=== PATIENT | female | born 1990 | race Caucasian/White ===

== ENCOUNTER → 2018-10-05 | Outpatient (CLI) | payer OTHER | LOC: BHSO 10:52 | DX: F31.81 Bipolar II disorder (principal) ==

== ENCOUNTER → 2018-11-06 | Outpatient (CLI) | payer OTHER | LOC: BHSO 07:58 | DX: F31.81 Bipolar II disorder (principal) | CPT/HCPCS: G0463 ==

== ENCOUNTER → 2019-05-16 | Outpatient (CLI) | payer OTHER | LOC: BHSO 16:14 | DX: F31.81 Bipolar II disorder (principal) | CPT/HCPCS: G0463 ==

== ENCOUNTER → 2019-07-17 | Outpatient (CLI) | payer OTHER | LOC: BHSO 08:05 | DX: F31.81 Bipolar II disorder (principal) | CPT/HCPCS: G0463 ==

== ENCOUNTER → 2019-10-23 | Outpatient (CLI) | payer OTHER | LOC: BHSO 08:00 | DX: F31.81 Bipolar II disorder (principal) | CPT/HCPCS: G0463 ==